=== PATIENT | female | born 1975 | race Caucasian/White ===

== ENCOUNTER → 2020-02-25 11:40 | Outpatient (CLI) | payer OTHER, SELFPAY ==
[2020-02-26 06:11] LABS: RPR Screen Non Reactive (Non Reactive)
[2020-02-26 06:36] LABS: HSV 2 IGG AB 6.99 index (0.00-0.90); HSV1IGG < 0.91 index (0.00-0.90)
[2020-02-27 16:20] LABS: HIV 1 & 2 Ab/Ag 4th Gen Combo NEGATIVE (NEGATIVE); Hep C Virus Ab w/Reflex Quant NEGATIVE s/c (NEGATIVE)
== END ==
PROVIDERS: PCP Internal Medicine; Referring Provider Specialist; Visit Provider Specialist
DX: Z20.2 Contact with and (suspected) exposure to infections with a predominantly sexual mode of transmission (principal)
CPT/HCPCS: 36415; 86592; 86695; 86696; 86803; 87389

== ENCOUNTER 2021-01-18 10:02 | Day surgery (SDC) | payer OTHER, SELFPAY ==
[2021-01-17 13:46] VITALS: BMI 29.5
--- NOTE | 2021-01-17 18:25 | SUR.PREOP ---
attempted call to pt regarding medication question prior to procedure on 01/18. Message left.
[2021-01-18] VITALS (15 sets, daily range): BP systolic 95–127; BP diastolic 30–80; PULSE 56–88; RESP 12–20; TEMP 36.2–37.1; O2SAT 94–100; BMI 29.5
--- NOTE | 2021-01-18 | PATH_ITS ---
[facility] Accession Number: [id number] . 01 Material submitted: . uterus - UTERUS AND BOTH FALLOPIAN TUBES . 02 Diagnosis: Uterus and Both Fallopian Tubes, Supracervical Hysterectomy and Bilateral Salpingectomy (Weight 31 grams): Proliferative endometrium; negative for glandular hyperplasia, cytologic atypia, or malignancy. Myometrium with no significant histomorphologic abnormality. Subserosal leiomyoma (1.8 cm in greatest dimension); negative for atypia or malignancy. Fallopian tubes x2 with benign paratubal cysts (1-5 mm in greatest dimension); negative for atypia or malignancy. [facility] 01/21/2021 1047 Local . 02 Electronically signed: . Maria De Jesus Parks MD, Pathologist NPI- [id number] . 01 Gross description: . The specimen is received in formalin, labeled uterus and both fallopian tubes and consists of a 31-gram supracervically resected uterus with bilateral fallopian tubes. The specimen measures 4.0 cm from superior fundus to lower uterine segment by 4.1 cm from cornu to cornu by 3.0 cm from anterior to posterior. The specimen has been previously incised. The distinction from anterior to posterior cannot be determined. The serosa is weinberg-pink and smooth with a 1.8 x 1.5 x 1.5 cm weinberg-white whorled subserosal nodule with no areas of hemorrhage, necrosis or cystic degeneration. The specimen is further bivalved to reveal a 2.5 x 1.5 cm endometrial cavity with a weinberg-pink glistening endometrium measuring 0.3 cm in thickness. The myometrium is weinberg-pink and trabeculated, measuring 1.7 cm in thickness. The fallopian tubes measure 6.5 cm in length by 1.0 cm in diameter and 6.8 cm in length by 1.1 cm in diameter. The serosa is pink-purple and smooth with multiple paratubal cysts ranging from 0.1-0.5 cm. Sectioning reveals a weinberg-pink mucosa and a stellate lumen measuring 0.4 cm in diameter. Floor Grinder sections are submitted. . A1-A2: Lower uterine segment. A3-A6: Full thickness uterus. A7: Floor Grinder subserosal leiomyoma. A8-A9: Fallopian tube, central cross-sections and bisected fimbria. A10-A11: Other fallopian tube, central cross-sections and bisected fimbria. (EA:[id number]) /MRV 01/19/2021 1338 Local . 02 Pathologist provided ICD-10: D25.9 . 02 CPT . 571840 Performed at: 01 [facility] [address] [id number] MD Enzo Alba MD Phone: [phone] Performed at: 02 [facility] [address] [place] [id number] MD Belinda Harper MD Phone: [phone]
--- NOTE | 2021-01-18 12:30 | PM.PREOP ---
Pre-operative Note COVID-19 COVID-19 status: Negative Result date/Date tested (Pos, Neg/Pending): 01/18/21 Interval Note History & Physical reviewed/Exam performed by Physician: Yes Changes to H&P: No
[2021-01-18] MEDS: LACTATED RINGERS 1,000 ML 100 ML IV ×2 (13:17→17:47)
[2021-01-18] MEDS: CEFAZOLIN 1 GM VIAL 2 GM IV (13:55)
--- NOTE | 2021-01-18 14:16 | SUR.OPER ---
Lithotomy on padded OR bed. Annetta Pad Positioner under torso. Head on pillow, arms padded and tucked at sides. Legs secured in padded yellow fins stirrups.
--- NOTE | 2021-01-18 14:21 | SUR.OPER ---
Lithotomy on padded OR bed. Nowthen Pad Positioner under torso. Head on pillow, arms padded and tucked at sides. Legs secured in padded yellow fins stirrups.
--- NOTE | 2021-01-18 14:22 | SUR.OPER ---
Lithotomy on padded OR bed. Eugenio Saenz Pad Positioner under torso. Head on pillow, arms padded and tucked at sides. Legs secured in padded yellow fins stirrups.
[2021-01-18] MEDS: BUPIVACAINE 0.5% (PF) VIAL 30 ML INJ (14:39)
[2021-01-18] MEDS: EPINEPHrine 1 MG/ML IV (14:40)
[2021-01-18] MEDS: ROPIVACAINE 0.2% PF 2 MG/ML 10ML AMP 10 ML INJ (14:45)
--- NOTE | 2021-01-18 15:06 | PM.OP.1 ---
Operative Date/Time/Diagnoses Date of procedure: 01/18/21 Time of procedure: 15:06 Pre-op diagnosis: dysmenorrhea, pelvic pain, dyspareunia with history of endometrial ablation Post-op diagnosis: same Procedure & Clinicians Procedure: laparoscopic supracervical hysterectomy with bilateral salpingectomy Same procedure as scheduled: Yes Indications: patient with long history of pelvic pain, dysmenorrhea, dyspareunia despite endometrial ablation requesting hysterectomy Surgeon: Julieta Shin Parasitologist: Rico Gu Click Yes if Unassisted: No Anesthesia Type: General Operative Notes Findings: Normal tubes, ovaries. Uterus with subserosal fibroid. Normal bowel surface. Normal liver edge. Normal appendix. No evidence of endometriosis, adhesions, or internal hernias Closure Type: primary Specimen(s): other ( uterus above the level of the bladder with bilateral fallopian tubes) Estimated Blood Loss (mL): 10 Blood products transfused: none Procedure in detail: Patient is brought to the operating room where she underwent general anesthesia [facility] She was prepped and draped in the usual sterile fashion. A check list was reviewed with the staff in the room prior to beginning of the case. Patient had pulsatile stockings in place and functional. 2 g of Ancef were in prior to beginning of the case.. A Gates catheter was placed. A single-tooth tenaculum was placed on the anterior lip of the cervix and the cervix dilated to a #6 Hegar dilator. The uterine manipulator was placed through the cervix into the uterus with the balloon inflated with 3 mL of air. The area of the umbilical incision and the 5 mm right and left lower quadrant incisions were injected with Marcaine. An incision was made with scalpel. The verries needle was placed into the abdomen and confirmed in the appropriate place with withdrawal on a syringe and then free flow of fluid down through the needle. The abdomen was insufflated with CO2. The needle was removed and a 5 mm trocar placed without difficulty. There did not appear to be any damage is placement of the trocar. The right and left lower quadrant incisions were made with the scalpel and the trochars placed without damage to internal structures. The PK forceps were used to cauterize along the mesosalpinx followed by the round ligaments on both sides. The utero-ovarian ligaments were cauterized and cut. Sequential bites were taken down the broad ligaments. The uterine arteries were cauterized. An incision was made above the level bladder pushing the bladder away from the cervix. The NICHOLE loop was placed around the uterus and the uterus was amputated above the level of the bladder. Bleeding was controlled with the PK forceps. The PK forceps were used to cauterize in the endocervical canal. A supracervical incision was made and an 11 mm port placed. A 15 mm Endo Catch bag was placed in the abdomen. The uterus and tubes were placed in the bag and brought up through the suprapubic port site. The Estuardo O was placed. The uterus was hand morselized. The abdomen was reinsufflated and adequate hemostasis was noted. 10 mL of ropivacaine were placed across the cervix and adnexal area. The trochars were removed and the CO2 allowed escape from the abdomen. The fascia layer of the suprapubic site was repaired with 0 Polysorb suture. Skin was closed with 4-0 Monocryl suture at the suprapubic site and the other 3 sites. The patient went to recovery room in good condition. Counts of instruments and sponges were correct. Dr. Gu was present throughout the case to assist with holding the camera, retracting, cauterizing and cutting the structures on the left side of the patient, as well as assisting with morselization of the uterus. Complications: none Post-operative Condition: stable Disposition: Acute Care Plan for aftercare: home in a.m. if stable
[2021-01-18] MEDS: fentaNYL 100 MCG/2 ML INJ IV ×4 (15:19→16:18)
[2021-01-18] MEDS: OXYCODONE IR 5 MG TABLET PO ×2 (15:26→21:10)
--- NOTE | 2021-01-18 15:34 | SUR.PHASEI ---
VS as noted. Gap in BP noted as monitor cord was not plugged in.
[2021-01-18] MEDS: cloNIDine 0.1 MG TABLET PO (21:03)
[2021-01-18] MEDS: DOCUSATE 250 MG CAPSULE PO (21:03)
--- NOTE | 2021-01-18 22:56 | PC.NURSE ---
Pt arrived from PACU at 1730 Alert/oriented. Denies discomfort Acewrap/aquacell Dsg to the left knee CDI. IVF infusing as per orders via pump w/o incidence. Call light w/in reach, bed alarm on for pt safety. Continue w/plan of care.
--- NOTE | 2021-01-18 23:38 | PC.NURSE ---
Pt arrived from PACU at 1730 Alert/oriented. Denies discomfort Four bandaid Dsg to abdomen CDI. IVF infusing as per orders via pump w/o incidence. Call light w/in reach, bed alarm on for pt safety. Continue w/plan of care. Initialized on 01/18/21 22:56 - END OF NOTE
[2021-01-19 00:10] VITALS: O2SAT 100
[2021-01-19 00:30] VITALS: BP 112/65; PULSE 80; RESP 16; TEMP 36.6; O2SAT 100
[2021-01-19] MEDS: KETOROLAC 30 MG/ML VIAL IV ×2 (00:38→05:34)
[2021-01-19] MEDS: ZOLPIDEM 5 MG TABLET PO (01:56)
[2021-01-19] MEDS: OXYCODONE IR 5 MG TABLET PO ×2 (03:49→08:47)
[2021-01-19] MEDS: LACTATED RINGERS 1,000 ML 100 ML IV (03:54)
[2021-01-19 04:00] VITALS: BP 145/66; PULSE 52; RESP 20; TEMP 36.3; O2SAT 98
[2021-01-19 05:40] LABS: Add Manual Diff / Slide Review NO; Basophils Absolute Auto 0 /uL (0-100); Eosinophils Absolute Auto 0 /uL (0-450); Hemoglobin 12.9 g/dL (12.0-16.0); Lymphocytes Absolute Auto 1100 /uL (1100-4500); Lymphocytes Percent Auto 8.6 % (25-40); Mean Corpuscular HGB Conc 33.9 % (30-36); Mean Corpuscular Hemoglobin 30.4 PG (26-34); Mean Corpuscular Volume 89.8 fL (80-100); Monocytes Absolute Auto 600 /uL (0-900); Monocytes Percent Auto 5.2 % (3-14); Neutrophils Absolute Auto 10600 /uL (1500-7000); Neutrophils Percent Auto 86.2 % (50-75); Platelet Count 293 X10^3/uL (150-400); Red Blood Cell Count 4.23 X10^6/uL (4.0-5.2); Red Cell Distribution Width 13.3 % (11.6-14.8); White Blood Cell Count 12.3 X10^3/uL (4.5-11.0)
--- NOTE | 2021-01-19 06:45 | P.DS_ITS ---
History of Present Illness History of Present Illness Date Patient Seen: 01/19/21 Time Patient Seen: 06:45 Date of Onset of Symptoms: 01/19/21 Chief complaint: OPB Narrative: Patient with dysmenorrhea, dyspareunia, pelvic pain status post lap aroscopic supracervical hysterectomy with bilateral salpingectomy Discharge Providers Provider Discharge Date: 01/19/21 Primary care physician: Aiden Contreras MD Discharge provider: Julieta Shin MD Summary Hospital Course Discharge Diagnosis: Dysmenorrhea, dyspareunia, pelvic pain status post laparoscopic supracervical hysterectomy Hospital Course: Patient underwent a laparoscopic supracervical hysterectomy with bilateral salpingectomies on 01/18/2021. Patient's pain is under control. She is not nauseated. She is urinating and ambulating well. Status at Discharge Cognitive/behavioral status at discharge: oriented Functional status at discharge: independent ambulation Overall status at discharge: patient is progressing back to baseline Time Spent with Patient Time spent: Less than 30 minutes Exam Vital Signs (past 8 hours): - 01/19/21 00:10 01/19/21 00:30 01/19/21 04:00 Temperature 97.9 F 97.4 F L Pulse Rate 80 52 L Respiratory Rate 16 20 Blood Pressure 112/65 145/66 H Pulse Oximetry 100 100 98 Oxygen Delivery Method Room Air Oxygen Flow Rate 0 Narrative Exam Narrative: Patient's abdomen is soft, minimally distended, mild tenderness. Dressings are clean, dry, intact. No vaginal bleeding. Extremities without edema and nontender. Objective Labs Result Diagrams: 01/19/21 05:10 Labs: Laboratory Results - last 24 hr 01/19/21 05:10 WBC 12.3 H RBC 4.23 Hgb 12.9 Hct 38.0 MCV 89.8 MCH 30.4 MCHC 33.9 RDW 13.3 Plt Count 293 Neut % (Auto) 86.2 H Lymph % (Auto) 8.6 L [place] % (Auto) 5.2 Eos % (Auto) 0.0 L Baso % (Auto) 0.0 Neut # (Auto) 98404 H Lymph # (Auto) 1100 [place] # (Auto) 600 Eos # (Auto) 0 Baso # (Auto) 0 PFSH Medical History (Updated 01/17/21 @ 13:48 by Ayaka A Bear, RN) Anxiety and depression Dysmenorrhea TMJ (temporomandibular joint disorder) Surgical History (Updated 01/18/21 @ 15:03 by Julieta Shin MD) Status post laparoscopy Social History household members: none Smoking Status: Current some day smoker Discharge Assessment & Plan Assessment and Plan Assessment: Dysmenorrhea, dyspareunia, pelvic pain status post laparoscopic supracervical hysterectomy with bilateral salpingectomies doing well. Plan of Treatment: Discharge home follow-up in 1 week Discharge Plan Discharge Plan Patient Disposition: Home Discharge orders & Medications Discharge Orders: Discharge (Order); Ordered 01/19/21 Ordered By: Julieta Shin Prescriptions: Continued zolpidem 5 MG tablet 5 mg PO HS Qty: 0 RF: 0 ibuprofen [Advil] 200 MG tablet 400 mg PO Q6HP PRN (Reason: Pain) Qty: 0 RF: 0 bupropion HCl 75 mg tablet 75 mg PO DAILY RF: 0 gabapentin 400 mg capsule 2,000 mg PO DAILY RF: 0 oxycodone 5 mg tablet 5 mg PO Q4H PRN (Reason: pain) Qty: 60 RF: 0 Zyrtec 10 mg capsule 10 mg PO DAILY PRN (Reason: Allergy Symptoms) RF: 0 clonidine HCl 0.1 mg tablet 0.1 mg PO BEDTIME RF: 0 Follow up/Referrals: Julieta Shin MD [Physician] - 1 Week Aiden Contreras MD [Primary Care Provider] - Diet/Activity/Treatments Diet: Regular Activity: Nothing in vagina for 1 week no other restrictions Skin/Wound/Dressing Care Report to your healthcare provider any signs of infection, such as:: chills, fever, increased pain and unusual redness Dressing: Remove Band-Aids later today leave Steri-Strips in place can get wet just pat dry Visit Report/Discharge Packet Instructions: DI for Hysterectomy, DI for Laparoscopy Discharge Data Primary Care Provider: Aiden Contreras Attending Provider: Julieta Shin Quality VTE Deep Vein Thrombosis/Pulmonary Embolism Present on Admission: No
[2021-01-19 07:00] VITALS: O2SAT 98
[2021-01-19 08:00] VITALS: BP 111/58; PULSE 58; RESP 16; TEMP 36.6; O2SAT 98
[2021-01-19] MEDS: buPROPion 75 MG TABLET PO (08:44)
[2021-01-19] MEDS: DOCUSATE 250 MG CAPSULE PO (08:44)
[2021-01-19] MEDS: ACETAMINOPHEN 325 MG TABLET 650 MG PO (08:48)
--- NOTE | 2021-01-19 12:29 | PC.NURSE ---
Pt A&OX3, alert pleasant. Ambulating and transferring with slow steady gait. Reports tenderness to Abdomen 12/06 this a.m. medicated with oxycodone 5 mg and tylenol 650mg with good effect. VSS, afebrile. Lap sites to abdomen CDI, BS +x4. +Flatus. Voiding clear yellow urine. Pt cleared for discharge by this a.m. She verbalizes understanding of dishcharge, activity, wound care, medications, follow up appointments and s/sx of infection. Pt escorted via w/ch to private vehicle with mother this a.m. at 1005. All belongings with patient.
--- NOTE | 2021-01-19 15:08 | CM.DANOTE ---
DCP/Assessment: Reviewed chart. Patient is a 45yr old female admitted to [facility] for scheduled procedure with Dr. Shin. PCP is Aiden Contreras. Primary payor is 1)[facility]. Met with patient this AM explained CM/SW role. Patient reports that she has supportive family and that her Mom will be picking her up today. Patient has d/c order and no identified d/c planning needs. P: Home today. KJS Discharge Planning/Care Management Advanced directive, confirm from FAMILY Start: 01/18/21 21:59 Freq: Q24H Status: Discharge Protocol: Document 01/18/21 21:00 KMD (Rec: 01/18/21 22:06 KMD [id number]) Advance Directive, confirm on record Time 22:06 Person contacted Patient Copy received No CM Discharge Assessment Start: 01/19/21 15:06 Freq: Status: Active Protocol: Document 01/19/21 15:06 KJS (Rec: 01/19/21 15:08 KJS [id number]) Discharge Planning Assessment Assigned Clinical Nurse Educator MARY Yang Contact Information Adia Perez (mother) ph# Advance Directives? Yes Advance Directives on File No History Provided By Patient,Medical Record Prior Living Arrangements House Household Members none Type of transporation used prior to Drives own vehicle admit Independent with ADL's Yes Is patient alert and oriented? Yes Whiteboard Updated in Patient Room with Yes name and ext. # of Clinical Nurse Educator Review Status In Process Next Review Type Continued Stay Review Pre-Anesthesia Assessment Start: 01/17/21 13:46 Freq: Status: Discharge Protocol: Document 01/17/21 13:46 CAB (Rec: 01/17/21 13:51 CAB [id number]) Pre-Anesthesia Assessment Patient Information Reviewed Via Chart Review Comment COVID screen @ 01/17/21 Primary Care Provider Aiden Contreras Seen Specialist in Last 12 Months Yes Specialist Seen Coremaker Machine Primary Language Libyan Primary Special Education Teacher Required No Height 160.02 cm Weight 75.75 kg Body Mass Index (BMI) 29.5 Barriers to Learning None Hx Anesthesia Reactions Pt has concerns regarding her TMJ Anesthesia Review Requested No General Milling Superintendent No Smoking Status Never smoker Pain Present Pain Reported History of Falling (Recent or History of No ) Patient is completely paralyzed or No completely immobile Mental Status Oriented to own ability Currently Taking a Beta Mario No Anti-Coagulant Therapy No Has a Pin Sticker No Cardiac Testing No Hx Pacemaker/ICD No Pacemaker Rep Required? No Cardiac Clearance Received Not Applicable Bladder Pattern Hesitancy Urinary Catheter Present No Hx Urinary Self Catheterization No Patient No Lactating No Marital Status Single Patient Discharge Plan Description Return Home
== END 2021-01-19 10:05 | disposition home or self-care (01) ==
LOC: OR 10:04 → AC 10:04
PROVIDERS: PCP Internal Medicine; Referring Provider Specialist; Visit Provider Specialist
PROC: 0UT94ZL Resection of Uterus, Supracervical, Percutaneous Endoscopic Approach (ICD-10-PCS; CPT 58542; principal; 2021-01-18 13:30)
DX: N94.6 Dysmenorrhea, unspecified (principal); N94.10 Unspecified dyspareunia; Z01.812 Encounter for preprocedural laboratory examination; Z20.822 Contact with and (suspected) exposure to COVID-19; D25.2 Subserosal leiomyoma of uterus; N83.8 Other noninflammatory disorders of ovary, fallopian tube and broad ligament
CPT/HCPCS: 58542; 36415; 85025; 87635; J0171; J0690; J1100; J1885; J2250; J2405; J2704; J2795; J3010

== ENCOUNTER → 2021-01-18 11:21 | Outpatient (CLI) | payer OTHER, SELFPAY ==
[2021-01-18 11:54] LABS: COVID19 -Nasal RAPID Negative (Negative)
== END ==
PROVIDERS: PCP Internal Medicine; Visit Provider Specialist
DX: Z01.812 Encounter for preprocedural laboratory examination (principal); Z20.822 Contact with and (suspected) exposure to COVID-19
CPT/HCPCS: 87635

== ENCOUNTER 2021-05-04 13:45 | Outpatient (RCR) | payer OTHER, SELFPAY ==
[2021-01-18 18:21] VITALS: BMI 29.5
--- NOTE | 2021-03-03 16:13 | PT.OIE ---
Current Diagnoses Stress incontinence (female) (male) (03/03/21) Pelvic and perineal pain (03/03/21) Acquired absence of uterus with remaining cervical stump (03/03/21) Past Medical History (Last Updated 01/17/21 @ 13:48 by Ayaka Sexton RN) Anxiety and depression Dysmenorrhea TMJ (temporomandibular joint disorder) Past Surgical History Status post laparoscopy Visit Care Team Role Provider Type Aiden Contreras MD Primary Care Provider Non-Staff Specialty: Medical Address: [address] [place] [address] [address], [address] Email: Julieta Shin MD Attending Provider Physician Referring Provider Specialty: SENIOR CLINICAL PROJECT MANAGER Address: [address] [place] [address] [address] [place], [address] Email: [email or web address] Physical Therapy Initial Evaluation PT-OP-A Visit Information Start: 03/03/21 09:05 Freq: Status: Active Protocol: Document 03/03/21 09:00 AMB (Rec: 03/03/21 16:10 AMB [email or web address]) Out-Patient Physical Therapy Visit Information Visit Information Visit Type Initial Evaluation Visit Start Time 09:00 Visit Stop Time 09:45 Total Visit Minutes 45 Visit Number 1 PT-OP-B Current Condition Start: 03/03/21 09:05 Freq: Status: Active Protocol: Document 03/03/21 09:00 AMB (Rec: 03/03/21 09:28 AMB [id number]) Current Condition History of Current Condition Onset Date 01/18/21 Current Complaints Abdominal pain/pelvic floor weakness s/p supracervical hysterectomy History of Current Condition R abdominal pain over incision describes as burning, has been improving since surgery. Had hysterectomy due to painful menses. Did have large fibroid per her report. Wants to improve pelvic floor strength. Stopped stool softener a week ago. Strong cough sneeze leak. 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 Will be moving, wants to be able to pack boxes. Denies chronic constipation/chronic cough. G0. Prior Functional Status Baseline Function- ADL's Independent Baseline Function- Mobility Independent Current Functional Impairments (Reported) Functional Limitations- ADL's Limited lifting, pt reports she is not currently in a relationship where she has intercourse but she has had a history of pelvic floor pain with penetration, more concerned about abdominal pain and pelvic floor weakness. Personal Factors Other Personal Factors That May Effect History of back pain Therapy/Recovery PT-OP-C Subjective Start: 03/03/21 09:05 Freq: Status: Active Protocol: Document 03/03/21 09:00 AMB (Rec: 03/03/21 16:10 AMB [email or web address]) Patient Questionnaires Pelvic Pain and Urgency/Frequency Patient Symptom Scale Pelvic Pain Score 12 PT-OP-I Pelvic Floor Start: 03/03/21 09:05 Freq: Status: Active Protocol: Document 03/03/21 09:00 AMB (Rec: 03/03/21 16:10 AMB [email or web address]) Pelvic Floor Assessment Urine Urinary Symptoms Incomplete Emptying,Falling Out Feeling/Heavy,Pain Leakage Size Small Leakage Cause Cough,Sneeze Urine Pad Type Panty Liner Bowel Other Bowel Symptoms denies constipation Comments Pelvic Floor Comments Amy was a bit hyperverbal during eval, so will need to evaluate pelvic floor at next visit. Did evaluate abdomen. Good healing to scars, not significantly adhered but she does have significant tenderness. R>L PT-OP-T Assessment and Plan Start: 03/03/21 09:05 Freq: Status: Active Protocol: Document 03/03/21 09:00 AMB (Rec: 03/03/21 16:10 AMB [email or web address]) Physical Therapy Assessment Rehab Potential Rehabilitation Potential Good Evaluation Complexity Number of Personal Factors/Comorbidities 1-2 Number of Body Systems Impaired 4 or More Clinical Presentation at Evaluation Evolving Impairments Impairments Functional Activities, Functional Mobility,Pain,Soft Tissue Mobility Goals Two Impairment Abdominal pain Short Term Goal (STG) Amy will be independent and consistent with a HEP for abdominal manual release to decrease her abdominal pain. STG Duration 4 weeks Field Artillery Operations Specialist Goal (LTG) Amy will lift 20# from the floor to waist height with good body mechanics without an increase in abdominal pain or a feeling of pelvic heaviness . LTG Duration 8 weeks One Impairment Pelvic floor strength Short Term Goal (STG) Amy will be independent and consistent with a pelvic floor HEP. STG Duration 4 weeks Assessment Summary Assessment Amy attends physical therapy s/p supracervical hysterectomy due to painful menses. She was quite tender over her entire abdomen, especially right scars which appear to be healing well. She was hyperverbal during eval, so we held off on evaluating the pelvic floor until her next scheduled appointment due to time constraints. Depending on that evaluation she may benefit from pelvic floor strengthening or internal manual therapy. She does have a history of small urinary leaks with cough sneeze, so likely strengthening will be appropriate, but based on her current evaluation she will benefit from manual therapy at the abdomen and then appropriate strengthening so that she can return to her previous activity level of being able to do yardwork and lift without pain. Physical Therapy Plan Frequency and Duration Frequency of Treatment 1x/Week Duration of Treatment 10 weeks Plan of Care Start Date 03/03/21 Plan of Care End Date 05/12/21 Therapeutic Interventions Therapeutic Interventions Home Exercise Program,Manual Therapy,Neuromuscular Re- education,Self-Care/Home Management,Soft Tissue Mobilization,Therapeutic Activities,Therapeutic Exercises Modalities Biofeedback,Cold Pack/Ice Massage,Electric Stimulation, Hot Packs Next Visit Focus/Plan Next Note Type Treatment Note Next Visit Plan Assess pelvic floor strength/ pain
--- NOTE | 2021-03-03 16:16 | PT.OPPOC ---
Physical, Occupational & Speech Therapy At [facility] Current Diagnoses Stress incontinence (female) (male) (03/03/21) Pelvic and perineal pain (03/03/21) Acquired absence of uterus with remaining cervical stump (03/03/21) Visit Care Team Role Provider Type Aiden Contreras MD Primary Care Provider Non-Staff Specialty: Medical Address: [address] [place] [address] [place], [address] Email: Julieta Shin MD Attending Provider Physician Referring Provider Specialty: FOREST [employer] MANAGEMENT OFFICER Address: [address] [place] [address] [address], [place], [address] Email: [email or web address] Plan Of Care PT-OP-T Assessment and Plan Start: 03/03/21 09:05 Freq: Status: Active Protocol: Document 03/03/21 09:00 AMB (Rec: 03/03/21 16:10 AMB [email or web address]) Physical Therapy Assessment Rehab Potential Rehabilitation Potential Good Evaluation Complexity Number of Personal Factors/Comorbidities 1-2 Number of Body Systems Impaired 4 or More Clinical Presentation at Evaluation Evolving Impairments Impairments Functional Activities, Functional Mobility,Pain,Soft Tissue Mobility Goals Two Impairment Abdominal pain Short Term Goal (STG) Amy will be independent and consistent with a HEP for abdominal manual release to decrease her abdominal pain. STG Duration 4 weeks Manager Corporate Marketing Goal (LTG) Amy will lift 20# from the floor to waist height with good body mechanics without an increase in abdominal pain or a feeling of pelvic heaviness . LTG Duration 8 weeks One Impairment Pelvic floor strength Short Term Goal (STG) Amy will be independent and consistent with a pelvic floor HEP. STG Duration 4 weeks Assessment Summary Assessment Amy attends physical therapy s/p supracervical hysterectomy due to painful menses. She was quite tender over her entire abdomen, especially right scars which appear to be healing well. She was hyperverbal during eval, so we held off on evaluating the pelvic floor until her next scheduled appointment due to time constraints. Depending on that evaluation she may benefit from pelvic foor strengthening or internal manual therapy. She does have a history of small urinary leaks with cough sneeze, so likely strengthening will be appropriate, but based on her current evaluation she will benefit from manual therapy at the abdomen and then appropriate strengthening so that she can return to her previous activity level of being able to do yardwork and lift without pain. Physical Therapy Plan Frequency and Duration Frequency of Treatment 1x/Week Duration of Treatment 10 weeks Plan of Care Start Date 03/03/21 Plan of Care End Date 05/12/21 Therapeutic Interventions Therapeutic Interventions Home Exercise Program,Manual Therapy,Neuromuscular Re- education,Self-Care/Home Management,Soft Tissue Mobilization,Therapeutic Activities,Therapeutic Exercises Modalities Biofeedback,Cold Pack/Ice Massage,Electric Stimulation, Hot Packs Next Visit Focus/Plan Next Note Type Treatment Note Next Visit Plan Assess pelvic floor strength/ pain Plan of Care Dates Plan of Care Start Date 03/03/21 Plan of Care End Date 05/12/21 Electronically Signed by: Kinjal Adams, PT 03/03/21 2076 Please Sign and Return: I have reviewed this Plan of Care and certify that the skilled therapy services above are required to meet the patient?s needs. Physician Signature Date Printed Name and Credentials Clinical Instructor Signature Printed Name and Credentials
--- NOTE | 2021-03-10 15:07 | PT.OTN ---
Current Diagnoses Stress incontinence (female) (male) (03/10/21) Pelvic and perineal pain (03/10/21) Acquired absence of uterus with remaining cervical stump (03/10/21) Physical Therapy Treatment Note PT-OP-A Visit Information Start: 03/03/21 09:05 Freq: Status: Active Protocol: Document 03/10/21 09:00 AMB (Rec: 03/10/21 10:00 AMB [id number]) Out-Patient Physical Therapy Visit Information Visit Information Visit Type Treatment Note Visit Start Time 09:00 Visit Stop Time 09:45 Total Visit Minutes 45 Visit Number 2 PT-OP-B Current Condition Start: 03/03/21 09:05 Freq: Status: Active Protocol: Document 03/03/21 09:00 AMB (Rec: 03/03/21 09:28 AMB [id number]) Current Condition History of Current Condition Onset Date 01/18/21 Current Complaints Abdominal pain/pelvic floor weakness s/p supracervical hysterectomy History of Current Condition R abdominal pain over incision describes as burning, has been improving since surgery. Had hysterectomy due to painful menses. Did have large fibroid per her report. Wants to improve pelvic floor strength. Stopped stool softener a week ago. Strong cough sneeze leak. 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 Will be moving, wants to be able to pack boxes. Denies chronic constipation/chronic cough. G0. Prior Functional Status Baseline Function- ADL's Independent Baseline Function- Mobility Independent Current Functional Impairments (Reported) Functional Limitations- ADL's Limited lifting, pt reports she is not currently in a relationship where she has intercourse but she has had a history of pelvic floor pain with penetration, more concerned about abdominal pain and pelvic floor weakness. Personal Factors Other Personal Factors That May Effect History of back pain Therapy/Recovery PT-OP-C Subjective Start: 03/03/21 09:05 Freq: Status: Active Protocol: Document 03/10/21 09:00 AMB (Rec: 03/10/21 10:00 AMB [id number]) OP-PT Subjective Patient Comments Patient Comments Pt saw Dr. Shin yesterday and is doing ok. Burning in right upper quadrant continues . PT-OP-I Pelvic Floor Start: 03/03/21 09:05 Freq: Status: Active Protocol: Document 03/03/21 09:00 AMB (Rec: 03/03/21 16:10 AMB [email or web address]) Pelvic Floor Assessment Urine Urinary Symptoms Incomplete Emptying,Falling Out Feeling/Heavy,Pain Leakage Size Small Leakage Cause Cough,Sneeze Urine Pad Type Panty Liner Bowel Other Bowel Symptoms denies constipation Comments Pelvic Floor Comments Amy was a bit hyperverbal during eval, so will need to evaluate pelvic floor at next visit. Did evaluate abdomen. Good healing to scars, not significantly adhered but she does have significant tenderness. R>L PT-OP-Q Treatments Start: 03/03/21 09:05 Freq: Status: Active Protocol: Document 03/10/21 09:00 AMB (Rec: 03/10/21 15:07 AMB [email or web address]) Therapeutic Exercises Sitting Exercises 1 Sitting Exercise Name roll in and roll out Resistance #2 t band Reps/Minutes 3x10 Standing Exercises 1 Standing Exercise Name quick flicks and long holds Reps/Minutes 10s PT-OP-T Assessment and Plan Start: 03/03/21 09:05 Freq: Status: Active Protocol: Document 03/10/21 09:00 AMB (Rec: 03/10/21 15:07 AMB [email or web address]) Physical Therapy Assessment Goals Two Impairment Abdominal pain Short Term Goal (STG) Amy will be independent and consistent with a HEP for abdominal manual release to decrease her abdominal pain. STG Duration 4 weeks Shelter Goal (LTG) Amy will lift 20# from the floor to waist height with good body mechanics without an increase in abdominal pain or a feeling of pelvic heaviness . LTG Duration 8 weeks One Impairment Pelvic floor strength Short Term Goal (STG) Amy will be independent and consistent with a pelvic floor HEP. STG Duration 4 weeks Assessment Summary Assessment Amy had 3/5 strength with pelvic floor. Difficulty doing more than 8 quick flicks and does fatigue after 5-8 seconds of long hold. Physical Therapy Plan Frequency and Duration Frequency of Treatment 1x/Week Duration of Treatment 10 weeks Plan of Care Start Date 03/03/21 Plan of Care End Date 05/12/21 Therapeutic Interventions Therapeutic Interventions Home Exercise Program,Manual Therapy,Neuromuscular Re- education,Self-Care/Home Management,Soft Tissue Mobilization,Therapeutic Activities,Therapeutic Exercises Modalities Biofeedback,Cold Pack/Ice Massage,Electric Stimulation, Hot Packs Next Visit Focus/Plan Next Note Type Treatment Note Next Visit Plan Continue to work on abdominal mobilization and pelvic floor strength
--- NOTE | 2021-03-24 16:06 | PT.OTN ---
Current Diagnoses Stress incontinence (female) (male) (03/24/21) Pelvic and perineal pain (03/24/21) Acquired absence of uterus with remaining cervical stump (03/24/21) Physical Therapy Treatment Note PT-OP-A Visit Information Start: 03/03/21 09:05 Freq: Status: Active Protocol: Document 03/24/21 12:45 AMB (Rec: 03/24/21 13:29 AMB [id number]) Out-Patient Physical Therapy Visit Information Visit Information Visit Type Treatment Note Visit Start Time 12:45 Visit Stop Time 13:30 Total Visit Minutes 45 Visit Number 3 PT-OP-B Current Condition Start: 03/03/21 09:05 Freq: Status: Active Protocol: Document 03/03/21 09:00 AMB (Rec: 03/03/21 09:28 AMB [id number]) Current Condition History of Current Condition Onset Date 01/18/21 Current Complaints Abdominal pain/pelvic floor weakness s/p supracervical hysterectomy History of Current Condition R abdominal pain over incision describes as burning, has been improving since surgery. Had hysterectomy due to painful menses. Did have large fibroid per her report. Wants to improve pelvic floor strength. Stopped stool softener a week ago. Strong cough sneeze leak. 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 Will be moving, wants to be able to pack boxes. Denies chronic constipation/chronic cough. G0. Prior Functional Status Baseline Function- ADL's Independent Baseline Function- Mobility Independent Current Functional Impairments (Reported) Functional Limitations- ADL's Limited lifting, pt reports she is not currently in a relationship where she has intercourse but she has had a history of pelvic floor pain with penetration, more concerned about abdominal pain and pelvic floor weakness. Personal Factors Other Personal Factors That May Effect History of back pain Therapy/Recovery PT-OP-C Subjective Start: 03/03/21 09:05 Freq: Status: Active Protocol: Document 03/24/21 12:45 AMB (Rec: 03/24/21 13:29 AMB [id number]) OP-PT Subjective Patient Comments Patient Comments Pt feeling like she is going to bathroom frequently about every hour. Bladder is uncomfortable. Burning on right side continues. Worse with sitting. PT-OP-I Pelvic Floor Start: 03/03/21 09:05 Freq: Status: Active Protocol: Document 03/03/21 09:00 AMB (Rec: 03/03/21 16:10 AMB [email or web address]) Pelvic Floor Assessment Urine Urinary Symptoms Incomplete Emptying,Falling Out Feeling/Heavy,Pain Leakage Size Small Leakage Cause Cough,Sneeze Urine Pad Type Panty Liner Bowel Other Bowel Symptoms denies constipation Comments Pelvic Floor Comments Amy was a bit hyperverbal during eval, so will need to evaluate pelvic floor at next visit. Did evaluate abdomen. Good healing to scars, not significantly adhered but she does have significant tenderness. R>L PT-OP-Q Treatments Start: 03/03/21 09:05 Freq: Status: Active Protocol: Document 03/24/21 12:45 AMB (Rec: 03/24/21 16:06 AMB [email or web address]) Manual Therapy Treatment Soft Tissue Mobilization 1 Body Location R diaphragm Mobilization Type Myofascial Release Intensity/Depth Moderate Body Position Supine Self-Care/Home Management Treatment Activities Self-Care/Home Management Activities Education in bladder diary, role of orthopedic pain (pain changing with positional changes/movement), educated in sipping water throughout the day rather than guzzling at end of day, timing of voids, relaxation to allow pelvic floor to relax to void urine. PT-OP-T Assessment and Plan Start: 03/03/21 09:05 Freq: Status: Active Protocol: Document 03/24/21 12:45 AMB (Rec: 03/24/21 13:29 AMB [id number]) Physical Therapy Assessment Assessment Summary Assessment Pt having significant difficulty with sleeping. Discussed role of sleep and stress. Tender at diaphragm bilaterally worse on R. Instructed in bladder diary, to work on pelvic floor and breathing and to try to decrease frequendy of urination to every 2 hours.
--- NOTE | 2021-04-01 10:47 | PT.OTN ---
Current Diagnoses Stress incontinence (female) (male) (04/01/21) Pelvic and perineal pain (04/01/21) Acquired absence of uterus with remaining cervical stump (04/01/21) Physical Therapy Treatment Note PT-OP-A Visit Information Start: 03/03/21 09:05 Freq: Status: Active Protocol: Document 04/01/21 09:00 AMB (Rec: 04/01/21 10:30 AMB [id number]) Out-Patient Physical Therapy Visit Information Visit Information Visit Type Treatment Note Visit Start Time 09:00 Visit Stop Time 00:45 Total Visit Minutes 45 Visit Number 4 PT-OP-B Current Condition Start: 03/03/21 09:05 Freq: Status: Active Protocol: Document 03/03/21 09:00 AMB (Rec: 03/03/21 09:28 AMB [id number]) Current Condition History of Current Condition Onset Date 01/18/21 Current Complaints Abdominal pain/pelvic floor weakness s/p supracervical hysterectomy History of Current Condition R abdominal pain over incision describes as burning, has been improving since surgery. Had hysterectomy due to painful menses. Did have large fibroid per her report. Wants to improve pelvic floor strength. Stopped stool softener a week ago. Strong cough sneeze leak. 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 Will be moving, wants to be able to pack boxes. Denies chronic constipation/chronic cough. G0. Prior Functional Status Baseline Function- ADL's Independent Baseline Function- Mobility Independent Current Functional Impairments (Reported) Functional Limitations- ADL's Limited lifting, pt reports she is not currently in a relationship where she has intercourse but she has had a history of pelvic floor pain with penetration, more concerned about abdominal pain and pelvic floor weakness. Personal Factors Other Personal Factors That May Effect History of back pain Therapy/Recovery PT-OP-C Subjective Start: 03/03/21 09:05 Freq: Status: Active Protocol: Document 04/01/21 09:00 AMB (Rec: 04/01/21 10:30 AMB [id number]) OP-PT Subjective Patient Comments Patient Comments Pt is going to the bathroom about every 70 minutes now, improved from every 60 minutes . [place] good for about a week but yesterday burning returned , hasn't found a pattern to it . PT-OP-I Pelvic Floor Start: 03/03/21 09:05 Freq: Status: Active Protocol: Document 03/03/21 09:00 AMB (Rec: 03/03/21 16:10 AMB [email or web address]) Pelvic Floor Assessment Urine Urinary Symptoms Incomplete Emptying,Falling Out Feeling/Heavy,Pain Leakage Size Small Leakage Cause Cough,Sneeze Urine Pad Type Panty Liner Bowel Other Bowel Symptoms denies constipation Comments Pelvic Floor Comments Amy was a bit hyperverbal during eval, so will need to evaluate pelvic floor at next visit. Did evaluate abdomen. Good healing to scars, not significantly adhered but she does have significant tenderness. R>L PT-OP-Q Treatments Start: 03/03/21 09:05 Freq: Status: Active Protocol: Document 04/01/21 10:33 AMB (Rec: 04/01/21 10:47 AMB [email or web address]) Therapeutic Exercises Standing Exercises 2 Standing Exercise Name hip flexor stretch Reps/Minutes 30x3 Manual Therapy Treatment Soft Tissue Mobilization 2 Body Location R abdomen Mobilization Type Instrument Assisted Intensity/Depth Superficial Body Position Hooklying Comments medium cup Taping 1 Body Location R abdomen Comments edema control PT-OP-T Assessment and Plan Start: 03/03/21 09:05 Freq: Status: Active Protocol: Document 04/01/21 10:33 AMB (Rec: 04/01/21 10:47 AMB [email or web address]) Physical Therapy Assessment Goals Two Impairment Abdominal pain Short Term Goal (STG) Amy will be independent and consistent with a HEP for abdominal manual release to decrease her abdominal pain. STG Duration 4 weeks Correction Goal (LTG) Amy will lift 20# from the floor to waist height with good body mechanics without an increase in abdominal pain or a feeling of pelvic heaviness . LTG Duration 8 weeks One Impairment Pelvic floor strength Short Term Goal (STG) Amy will be independent and consistent with a pelvic floor HEP. STG Duration 4 weeks Assessment Summary Assessment Pt continues to have tenderness distal to her right laparoscopic scar, but burning is closer up to ribs/ diaphragm. Physical Therapy Plan Next Visit Focus/Plan Next Visit Plan Follow up on K tape and cupping
--- NOTE | 2021-04-07 15:32 | PT.OTN ---
Current Diagnoses Stress incontinence (female) (male) (04/07/21) Pelvic and perineal pain (04/07/21) Acquired absence of uterus with remaining cervical stump (04/07/21) Physical Therapy Treatment Note PT-OP-A Visit Information Start: 03/03/21 09:05 Freq: Status: Active Protocol: Document 04/07/21 14:30 AMB (Rec: 04/07/21 15:32 AMB [id number]) Out-Patient Physical Therapy Visit Information Visit Information Visit Type Treatment Note Visit Start Time 14:30 Visit Stop Time 15:15 Total Visit Minutes 45 Visit Number 5 PT-OP-B Current Condition Start: 03/03/21 09:05 Freq: Status: Active Protocol: Document 03/03/21 09:00 AMB (Rec: 03/03/21 09:28 AMB [id number]) Current Condition History of Current Condition Onset Date 01/18/21 Current Complaints Abdominal pain/pelvic floor weakness s/p supracervical hysterectomy History of Current Condition R abdominal pain over incision describes as burning, has been improving since surgery. Had hysterectomy due to painful menses. Did have large fibroid per her report. Wants to improve pelvic floor strength. Stopped stool softener a week ago. Strong cough sneeze leak. 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 Will be moving, wants to be able to pack boxes. Denies chronic constipation/chronic cough. G0. Prior Functional Status Baseline Function- ADL's Independent Baseline Function- Mobility Independent Current Functional Impairments (Reported) Functional Limitations- ADL's Limited lifting, pt reports she is not currently in a relationship where she has intercourse but she has had a history of pelvic floor pain with penetration, more concerned about abdominal pain and pelvic floor weakness. Personal Factors Other Personal Factors That May Effect History of back pain Therapy/Recovery PT-OP-C Subjective Start: 03/03/21 09:05 Freq: Status: Active Protocol: Document 04/07/21 14:30 AMB (Rec: 04/07/21 15:32 AMB [id number]) OP-PT Subjective Patient Comments Patient Comments Amy liked the taping, kept it on for 3 days and did not have skin issues. did have a little burning yesterday, but otherwise no burning. PT-OP-I Pelvic Floor Start: 03/03/21 09:05 Freq: Status: Active Protocol: Document 03/03/21 09:00 AMB (Rec: 03/03/21 16:10 AMB [email or web address]) Pelvic Floor Assessment Urine Urinary Symptoms Incomplete Emptying,Falling Out Feeling/Heavy,Pain Leakage Size Small Leakage Cause Cough,Sneeze Urine Pad Type Panty Liner Bowel Other Bowel Symptoms denies constipation Comments Pelvic Floor Comments Amy was a bit hyperverbal during eval, so will need to evaluate pelvic floor at next visit. Did evaluate abdomen. Good healing to scars, not significantly adhered but she does have significant tenderness. R>L PT-OP-Q Treatments Start: 03/03/21 09:05 Freq: Status: Active Protocol: Document 04/07/21 14:30 AMB (Rec: 04/07/21 15:32 AMB [id number]) Therapeutic Exercises Standing Exercises 2 Standing Exercise Name hip flexor stretch Reps/Minutes 30x3 Manual Therapy Treatment Soft Tissue Mobilization 2 Body Location R abdomen Mobilization Type Instrument Assisted Intensity/Depth Superficial Body Position Hooklying Comments medium and small cup Taping 1 Body Location R abdomen Comments edema control PT-OP-T Assessment and Plan Start: 03/03/21 09:05 Freq: Status: Active Protocol: Document 04/07/21 14:30 AMB (Rec: 04/07/21 15:32 AMB [id number]) Physical Therapy Assessment Assessment Summary Assessment More sensitivity at right laproscopic scar, not as much at diphragm today. Physical Therapy Plan Next Visit Focus/Plan Next Visit Plan Follow up on K tape and cupping, encourage continued work to decrease frequency
--- NOTE | 2021-04-14 15:51 | PT.OTN ---
Current Diagnoses Stress incontinence (female) (male) (04/14/21) Pelvic and perineal pain (04/14/21) Acquired absence of uterus with remaining cervical stump (04/14/21) Physical Therapy Treatment Note PT-OP-A Visit Information Start: 03/03/21 09:05 Freq: Status: Active Protocol: Document 04/14/21 09:45 AMB (Rec: 04/14/21 10:25 AMB [id number]) Out-Patient Physical Therapy Visit Information Visit Information Visit Type Treatment Note Visit Start Time 09:45 Visit Stop Time 10:30 Total Visit Minutes 45 Visit Number 6 PT-OP-B Current Condition Start: 03/03/21 09:05 Freq: Status: Active Protocol: Document 03/03/21 09:00 AMB (Rec: 03/03/21 09:28 AMB [id number]) Current Condition History of Current Condition Onset Date 01/18/21 Current Complaints Abdominal pain/pelvic floor weakness s/p supracervical hysterectomy History of Current Condition R abdominal pain over incision describes as burning, has been improving since surgery. Had hysterectomy due to painful menses. Did have large fibroid per her report. Wants to improve pelvic floor strength. Stopped stool softener a week ago. Strong cough sneeze leak. 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 Will be moving, wants to be able to pack boxes. Denies chronic constipation/chronic cough. G0. Prior Functional Status Baseline Function- ADL's Independent Baseline Function- Mobility Independent Current Functional Impairments (Reported) Functional Limitations- ADL's Limited lifting, pt reports she is not currently in a relationship where she has intercourse but she has had a history of pelvic floor pain with penetration, more concerned about abdominal pain and pelvic floor weakness. Personal Factors Other Personal Factors That May Effect History of back pain Therapy/Recovery PT-OP-C Subjective Start: 03/03/21 09:05 Freq: Status: Active Protocol: Document 04/14/21 15:45 AMB (Rec: 04/14/21 15:50 AMB [email or web address]) OP-PT Subjective Patient Comments Patient Comments Amy hasn't had the burning she bought some cups and k tape off of [email or web address] but they haven't arrived yet. PT-OP-I Pelvic Floor Start: 03/03/21 09:05 Freq: Status: Active Protocol: Document 03/03/21 09:00 AMB (Rec: 03/03/21 16:10 AMB [email or web address]) Pelvic Floor Assessment Urine Urinary Symptoms Incomplete Emptying,Falling Out Feeling/Heavy,Pain Leakage Size Small Leakage Cause Cough,Sneeze Urine Pad Type Panty Liner Bowel Other Bowel Symptoms denies constipation Comments Pelvic Floor Comments Amy was a bit hyperverbal during eval, so will need to evaluate pelvic floor at next visit. Did evaluate abdomen. Good healing to scars, not significantly adhered but she does have significant tenderness. R>L PT-OP-Q Treatments Start: 03/03/21 09:05 Freq: Status: Active Protocol: Document 04/14/21 15:45 AMB (Rec: 04/14/21 15:50 AMB [email or web address]) Cardio Equipment Treadmill Duration (Minutes) 7 Speed 1.5 Manual Therapy Treatment Taping 1 Body Location R abdomen Type of Tape Kinesio Tape Comments edema control PT-OP-T Assessment and Plan Start: 03/03/21 09:05 Freq: Status: Active Protocol: Document 04/14/21 15:45 AMB (Rec: 04/14/21 15:50 AMB [email or web address]) Physical Therapy Assessment Goals Two Impairment Abdominal pain Short Term Goal (STG) Amy will be independent and consistent with a HEP for abdominal manual release to decrease her abdominal pain. STG Duration 4 weeks Rheumatology Nurse Goal (LTG) Amy will lift 20# from the floor to waist height with good body mechanics without an increase in abdominal pain or a feeling of pelvic heaviness . LTG Duration 8 weeks One Impairment Pelvic floor strength Short Term Goal (STG) Amy will be independent and consistent with a pelvic floor HEP. STG Duration 4 weeks Assessment Summary Assessment Encouraged Amy in self k tape and to start a walking program starting at walking 8 minutes at 1.5 mph and increasing by one minute per week. Physical Therapy Plan Next Visit Focus/Plan Next Note Type Treatment Note Next Visit Plan Follow up on cardio program
--- NOTE | 2021-04-21 10:51 | PT.OTN ---
Current Diagnoses Stress incontinence (female) (male) (04/21/21) Pelvic and perineal pain (04/21/21) Acquired absence of uterus with remaining cervical stump (04/21/21) Physical Therapy Treatment Note PT-OP-A Visit Information Start: 03/03/21 09:05 Freq: Status: Active Protocol: Document 04/21/21 08:15 AMB (Rec: 04/21/21 08:59 AMB [id number]) Out-Patient Physical Therapy Visit Information Visit Information Visit Type Treatment Note Visit Start Time 08:15 Visit Stop Time 09:00 Total Visit Minutes 45 Visit Number 7 PT-OP-B Current Condition Start: 03/03/21 09:05 Freq: Status: Active Protocol: Document 03/03/21 09:00 AMB (Rec: 03/03/21 09:28 AMB [id number]) Current Condition History of Current Condition Onset Date 01/18/21 Current Complaints Abdominal pain/pelvic floor weakness s/p supracervical hysterectomy History of Current Condition R abdominal pain over incision describes as burning, has been improving since surgery. Had hysterectomy due to painful menses. Did have large fibroid per her report. Wants to improve pelvic floor strength. Stopped stool softener a week ago. Strong cough sneeze leak. 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 Will be moving, wants to be able to pack boxes. Denies chronic constipation/chronic cough. G0. Prior Functional Status Baseline Function- ADL's Independent Baseline Function- Mobility Independent Current Functional Impairments (Reported) Functional Limitations- ADL's Limited lifting, pt reports she is not currently in a relationship where she has intercourse but she has had a history of pelvic floor pain with penetration, more concerned about abdominal pain and pelvic floor weakness. Personal Factors Other Personal Factors That May Effect History of back pain Therapy/Recovery PT-OP-C Subjective Start: 03/03/21 09:05 Freq: Status: Active Protocol: Document 04/21/21 08:15 AMB (Rec: 04/21/21 08:59 AMB [id number]) OP-PT Subjective Patient Comments Patient Comments Pt has been walking on the treadmill and on the stairs. The burning has been back. PT-OP-I Pelvic Floor Start: 03/03/21 09:05 Freq: Status: Active Protocol: Document 03/03/21 09:00 AMB (Rec: 03/03/21 16:10 AMB [id number]) Pelvic Floor Assessment Urine Urinary Symptoms Incomplete Emptying,Falling Out Feeling/Heavy,Pain Leakage Size Small Leakage Cause Cough,Sneeze Urine Pad Type Panty Liner Bowel Other Bowel Symptoms denies constipation Comments Pelvic Floor Comments Amy was a bit hyperverbal during eval, so will need to evaluate pelvic floor at next visit. Did evaluate abdomen. Good healing to scars, not significantly adhered but she does have significant tenderness. R>L PT-OP-Q Treatments Start: 03/03/21 09:05 Freq: Status: Active Protocol: Document 04/21/21 08:15 AMB (Rec: 04/21/21 08:59 AMB [id number]) Cardio Equipment Treadmill Duration (Minutes) 11 Speed 1.5 Incline 1 Therapeutic Exercises Other Exercises thread the needle Reps/Minutes 10 Manual Therapy Treatment Soft Tissue Mobilization 2 Body Location R abdomen Mobilization Type Instrument Assisted Intensity/Depth Superficial Body Position Hooklying Comments medium and small cup Taping 1 Body Location R abdomen Type of Tape Kinesio Tape Comments edema control PT-OP-T Assessment and Plan Start: 03/03/21 09:05 Freq: Status: Active Protocol: Document 04/21/21 08:15 AMB (Rec: 04/21/21 08:59 AMB [id number]) Physical Therapy Assessment Goals Two Impairment Abdominal pain Short Term Goal (STG) Amy will be independent and consistent with a HEP for abdominal manual release to decrease her abdominal pain. STG Duration 4 weeks Jacket Changer Goal (LTG) Amy will lift 20# from the floor to waist height with good body mechanics without an increase in abdominal pain or a feeling of pelvic heaviness . LTG Duration 8 weeks One Impairment Pelvic floor strength Short Term Goal (STG) Amy will be independent and consistent with a pelvic floor HEP. STG Duration 4 weeks Assessment Summary Assessment Continued to educate in body mechanics as pt is packing boxes. Decreased burning with cupping, but also educated in role of diaphragm/pelvic floor and breathing. Physical Therapy Plan Next Visit Focus/Plan Next Note Type Treatment Note Next Visit Plan Follow up on cardio program
--- NOTE | 2021-04-27 15:47 | PT.OTN ---
Current Diagnoses Stress incontinence (female) (male) (04/27/21) Pelvic and perineal pain (04/27/21) Acquired absence of uterus with remaining cervical stump (04/27/21) Physical Therapy Treatment Note PT-OP-A Visit Information Start: 03/03/21 09:05 Freq: Status: Active Protocol: Document 04/27/21 09:45 AMB (Rec: 04/27/21 10:56 AMB [id number]) Out-Patient Physical Therapy Visit Information Visit Information Visit Type Treatment Note Visit Start Time 09:45 Visit Stop Time 10:30 Total Visit Minutes 45 Visit Number 8 PT-OP-B Current Condition Start: 03/03/21 09:05 Freq: Status: Active Protocol: Document 03/03/21 09:00 AMB (Rec: 03/03/21 09:28 AMB [id number]) Current Condition History of Current Condition Onset Date 01/18/21 Current Complaints Abdominal pain/pelvic floor weakness s/p supracervical hysterectomy History of Current Condition R abdominal pain over incision describes as burning, has been improving since surgery. Had hysterectomy due to painful menses. Did have large fibroid per her report. Wants to improve pelvic floor strength. Stopped stool softener a week ago. Strong cough sneeze leak. 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 Will be moving, wants to be able to pack boxes. Denies chronic constipation/chronic cough. G0. Prior Functional Status Baseline Function- ADL's Independent Baseline Function- Mobility Independent Current Functional Impairments (Reported) Functional Limitations- ADL's Limited lifting, pt reports she is not currently in a relationship where she has intercourse but she has had a history of pelvic floor pain with penetration, more concerned about abdominal pain and pelvic floor weakness. Personal Factors Other Personal Factors That May Effect History of back pain Therapy/Recovery PT-OP-C Subjective Start: 03/03/21 09:05 Freq: Status: Active Protocol: Document 04/27/21 09:45 AMB (Rec: 04/27/21 10:56 AMB [id number]) OP-PT Subjective Patient Comments Patient Comments Pt has not been walking as much, dealing with the move. Burning has been ok. PT-OP-I Pelvic Floor Start: 03/03/21 09:05 Freq: Status: Active Protocol: Document 03/03/21 09:00 AMB (Rec: 03/03/21 16:10 AMB [email or web address]) Pelvic Floor Assessment Urine Urinary Symptoms Incomplete Emptying,Falling Out Feeling/Heavy,Pain Leakage Size Small Leakage Cause Cough,Sneeze Urine Pad Type Panty Liner Bowel Other Bowel Symptoms denies constipation Comments Pelvic Floor Comments Amy was a bit hyperverbal during eval, so will need to evaluate pelvic floor at next visit. Did evaluate abdomen. Good healing to scars, not significantly adhered but she does have significant tenderness. R>L PT-OP-Q Treatments Start: 03/03/21 09:05 Freq: Status: Active Protocol: Document 04/27/21 09:45 AMB (Rec: 04/27/21 10:56 AMB [id number]) Cardio Equipment Treadmill Duration (Minutes) 7 Speed 1.5 Therapeutic Exercises Supine Exercises pelvic clock Supine Exercise Name with cues for breath Other Exercises rosita pose Comments with sidebending cat cow Reps/Minutes 10 Comments instruction in breath thread the needle Comments modified to bent elbow PT-OP-T Assessment and Plan Start: 03/03/21 09:05 Freq: Status: Active Protocol: Document 04/27/21 09:45 AMB (Rec: 04/27/21 10:56 AMB [id number]) Physical Therapy Assessment Goals Two Impairment Abdominal pain Short Term Goal (STG) Amy will be independent and consistent with a HEP for abdominal manual release to decrease her abdominal pain. STG Duration 4 weeks Assisted Goal (LTG) Amy will lift 20# from the floor to waist height with good body mechanics without an increase in abdominal pain or a feeling of pelvic heaviness . LTG Duration 8 weeks One Impairment Pelvic floor strength Short Term Goal (STG) Amy will be independent and consistent with a pelvic floor HEP. STG Duration 4 weeks Assessment Summary Assessment Pt had difficulty turning brain off to just work on stretches today, encouraged focus on breath work to decrease stress, as pt has noticed increased abdominal pain with stress which has increased with her upcoming move. Physical Therapy Plan Next Visit Focus/Plan Next Visit Plan Progress core stabilization, cardio progression.
--- NOTE | 2021-05-04 12:05 | PT.OTN ---
Current Diagnoses Stress incontinence (female) (male) (05/04/21) Pelvic and perineal pain (05/04/21) Acquired absence of uterus with remaining cervical stump (05/04/21) Physical Therapy Treatment Note PT-OP-A Visit Information Start: 03/03/21 09:05 Freq: Status: Active Protocol: Document 05/04/21 13:45 AMB (Rec: 05/04/21 14:32 AMB [id number]) Out-Patient Physical Therapy Visit Information Visit Information Visit Type Treatment Note Visit Start Time 13:45 Visit Stop Time 14:30 Total Visit Minutes 45 Visit Number 9 PT-OP-B Current Condition Start: 03/03/21 09:05 Freq: Status: Active Protocol: Document 03/03/21 09:00 AMB (Rec: 03/03/21 09:28 AMB [id number]) Current Condition History of Current Condition Onset Date 01/18/21 Current Complaints Abdominal pain/pelvic floor weakness s/p supracervical hysterectomy History of Current Condition R abdominal pain over incision describes as burning, has been improving since surgery. Had hysterectomy due to painful menses. Did have large fibroid per her report. Wants to improve pelvic floor strength. Stopped stool softener a week ago. Strong cough sneeze leak. 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 Will be moving, wants to be able to pack boxes. Denies chronic constipation/chronic cough. G0. Prior Functional Status Baseline Function- ADL's Independent Baseline Function- Mobility Independent Current Functional Impairments (Reported) Functional Limitations- ADL's Limited lifting, pt reports she is not currently in a relationship where she has intercourse but she has had a history of pelvic floor pain with penetration, more concerned about abdominal pain and pelvic floor weakness. Personal Factors Other Personal Factors That May Effect History of back pain Therapy/Recovery PT-OP-C Subjective Start: 03/03/21 09:05 Freq: Status: Active Protocol: Document 05/04/21 13:45 AMB (Rec: 05/04/21 14:32 AMB [id number]) OP-PT Subjective Patient Comments Patient Comments Amy has noticed some burning again, wondering if stress or food are related. Stressed about the upcoming move. PT-OP-I Pelvic Floor Start: 03/03/21 09:05 Freq: Status: Active Protocol: Document 03/03/21 09:00 AMB (Rec: 03/03/21 16:10 AMB [email or web address]) Pelvic Floor Assessment Urine Urinary Symptoms Incomplete Emptying,Falling Out Feeling/Heavy,Pain Leakage Size Small Leakage Cause Cough,Sneeze Urine Pad Type Panty Liner Bowel Other Bowel Symptoms denies constipation Comments Pelvic Floor Comments Amy was a bit hyperverbal during eval, so will need to evaluate pelvic floor at next visit. Did evaluate abdomen. Good healing to scars, not significantly adhered but she does have significant tenderness. R>L PT-OP-Q Treatments Start: 03/03/21 09:05 Freq: Status: Active Protocol: Document 05/05/21 12:01 AMB (Rec: 05/05/21 12:05 AMB [email or web address]) Manual Therapy Treatment Soft Tissue Mobilization 1 Body Location R diaphragm, R abdomen Mobilization Type Myofascial Release Intensity/Depth Moderate Body Position Supine Comments education in breathing techniques, chronic pain and the centralization, neuroplasticity, stress management techniques PT-OP-T Assessment and Plan Start: 03/03/21 09:05 Freq: Status: Active Protocol: Document 05/05/21 12:01 AMB (Rec: 05/05/21 12:05 AMB [email or web address]) Physical Therapy Assessment Goals Two Impairment Abdominal pain Short Term Goal (STG) Amy will be independent and consistent with a HEP for abdominal manual release to decrease her abdominal pain. STG Duration MET Assisted Goal (LTG) Amy will lift 20# from the floor to waist height with good body mechanics without an increase in abdominal pain or a feeling of pelvic heaviness . LTG Duration 8 weeks- Partially met One Impairment Pelvic floor strength Short Term Goal (STG) Amy will be independent and consistent with a pelvic floor HEP. STG Duration MET Assessment Summary Assessment Amy has made gains towards her goals of managing her abdominal pain, however her high stress/anxiety continue to limit her effective management of this pain. She would benefit from further exercise but until her move is complete is probably not in a mental space where this will happen. She may return to PT in a month, but if we do not hear from her we will go ahead and d/c as she has a lot on her plate right now. Physical Therapy Plan Hold Physical Therapy Reason For Hold Pt is moving to [place], but will be returning to the area in May, pt is on hold until that time and if we do not hear anything from her after mid-May will go ahead and discharge.
--- NOTE | 2021-06-13 09:24 | PT.OPDS ---
Current Diagnoses Stress incontinence (female) (male) (05/04/21) Pelvic and perineal pain (05/04/21) Acquired absence of uterus with remaining cervical stump (05/04/21) Visit Care Team Role Provider Type Aiden Contreras MD Primary Care Provider Non-Staff Specialty: Medical Address: [address] [place] [address] [place], [address] Email: Julieta Shin MD Attending Provider Physician Referring Provider Specialty: ALIGNMENT SPECIALIST Address: [address] [place] [address] [address], [address] Email: [email or web address] Visit Number Visit Number 9 Discharge Summary PT-OP-B Current Condition Start: 03/03/21 09:05 Freq: Status: Active Protocol: Document 03/03/21 09:00 AMB (Rec: 03/03/21 09:28 AMB [id number]) Current Condition History of Current Condition Onset Date 01/18/21 Current Complaints Abdominal pain/pelvic floor weakness s/p supracervical hysterectomy History of Current Condition R abdominal pain over incision describes as burning, has been improving since surgery. Had hysterectomy due to painful menses. Did have large fibroid per her report. Wants to improve pelvic floor strength. Stopped stool softener a week ago. Strong cough sneeze leak. 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 Will be moving, wants to be able to pack boxes. Denies chronic constipation/chronic cough. G0. Prior Functional Status Baseline Function- ADL's Independent Baseline Function- Mobility Independent Current Functional Impairments (Reported) Functional Limitations- ADL's Limited lifting, pt reports she is not currently in a relationship where she has intercourse but she has had a history of pelvic floor pain with penetration, more concerned about abdominal pain and pelvic floor weakness. Personal Factors Other Personal Factors That May Effect History of back pain Therapy/Recovery PT-OP-C Subjective Start: 03/03/21 09:05 Freq: Status: Active Protocol: Document 05/04/21 13:45 AMB (Rec: 05/04/21 14:32 AMB [id number]) OP-PT Subjective Patient Comments Patient Comments Amy has noticed some burning again, wondering if stress or food are related. Stressed about the upcoming move. PT-OP-I Pelvic Floor Start: 03/03/21 09:05 Freq: Status: Active Protocol: Document 03/03/21 09:00 AMB (Rec: 03/03/21 16:10 AMB [email or web address]) Pelvic Floor Assessment Urine Urinary Symptoms Incomplete Emptying,Falling Out Feeling/Heavy,Pain Leakage Size Small Leakage Cause Cough,Sneeze Urine Pad Type Panty Liner Bowel Other Bowel Symptoms denies constipation Comments Pelvic Floor Comments Amy was a bit hyperverbal during eval, so will need to evaluate pelvic floor at next visit. Did evaluate abdomen. Good healing to scars, not significantly adhered but she does have significant tenderness. R>L PT-OP-T Assessment and Plan Start: 03/03/21 09:05 Freq: Status: Active Protocol: Document 06/13/21 09:22 AMB (Rec: 06/13/21 09:24 AMB [email or web address]) Physical Therapy Assessment Goals Two Impairment Abdominal pain Short Term Goal (STG) Amy will be independent and consistent with a HEP for abdominal manual release to decrease her abdominal pain. STG Duration MET Membership Manager Goal (LTG) Amy will lift 20# from the floor to waist height with good body mechanics without an increase in abdominal pain or a feeling of pelvic heaviness . LTG Duration 8 weeks- Partially met One Impairment Pelvic floor strength Short Term Goal (STG) Amy will be independent and consistent with a pelvic floor HEP. STG Duration MET Assessment Summary Assessment At last visit: Amy has made gains towards her goals of managin her abdominal pain, however her high stress/ anxiety continue to limit her effective management of this pain. She would benefit from further exercise but until her move is complete is probably not in a mental space where this will happen. She may return to PT in a month, but if we do not hear from her we will go ahead and d/c as she has a lot on her plate right now. Physical Therapy Plan Discharge Physical Therapy Discharge Reasons No Longer Attending PT
== END 2021-08-30 09:46 ==
LOC: PHYS 13:45
PROVIDERS: PCP Internal Medicine; Referring Provider Specialist; Visit Provider Specialist
DX: Z90.711 Acquired absence of uterus with remaining cervical stump (principal); N39.3 Stress incontinence (female) (male); R10.2 Pelvic and perineal pain
CPT/HCPCS: 97110; 97140; 97162; 97535